=== PATIENT | male | born 1950 | race Two or more races ===

== ENCOUNTER 2017-03-16 00:10 | Inpatient (IN) | payer BC ==
[~2017-03-16] VITALS: Ht 167.6 cm; Wt 75.2 kg
[2017-03-16 01:59] LABS: Basophils # (auto) 0 uL; Basophils % (auto) 0.3 % (0.0-2.0); Eosinophils # (auto) 0 uL; Eosinophils % (auto) 0.1 % (0.0-7.0); Hematocrit 47.8 % (41.0-53.0); Hemoglobin 15.8 g/dL (13.5-17.5); Lymphocytes # (auto) 1.4 uL; Lymphocytes % (auto) 9.5 % (10.0-50.0); Mean Corpuscular Hemoglobin 28.7 pg (28.0-32.0); Mean Corpuscular Volume 86.9 fL (80.0-100.0); Monocytes # (auto) 1.5 uL; Monocytes % (auto) 10.1 % (0.0-12.0); Neutrophils # (auto) 11.6 uL; Platelet Count (auto) 264 10^3/uL (140-450); Red Cell Distribution Width 12.3 % (11.8-14.3); White Blood Cell 14.5 10^3/uL (4.4-10.8)
[2017-03-16 02:05] LABS: Alanine Aminotransferase 126 U/L (16-61); Albumin 3.9 g/dL (3.4-5.0); Amylase 59 U/L (25-115); Anion Gap 5 (5-15); Aspartate Aminotransferase 196 U/L (15-37); BUN/Creatinine Ratio 15.4; Blood Urea Nitrogen 14 mg/dL (7-18); Calcium 8.7 mg/dL (8.5-10.1); Carbon Dioxide 29 mmol/L (21-32); Chloride 101 mmol/L (98-107); GFR African American 108 mL/min; GFR Non-African American 89 mL/min; Glucose 115 mg/dL (74-106); Lipase 201 U/L (73-393); Magnesium 2.2 mg/dL (1.6-2.6); Potassium 4.9 mmol/L (3.5-5.1); Sodium 135 mmol/L (136-145)
[2017-03-16 02:10] LABS: Alkaline Phosphatase 94 U/L (45-117); Bilirubin, Total 1.4 mg/dL (0.2-1.0); Total Protein 7.7 g/dL (6.4-8.2)
[2017-03-16] MEDS ORDERED: SODIUM CHLORIDE 0.9% 1,000 ML IVB ONE (06:33)
[2017-03-16] MEDS ORDERED: ONDANSETRON HCL 4 MG/2 ML VIAL IV ONE (06:45)
[2017-03-16] MEDS ORDERED: HYDROmorphone HCL 2 MG/ML VL IV ONE (06:45)
[2017-03-16] MEDS ORDERED: metroNIDAZOLE 500MG/100ML 100 ML IV ONE (06:45)
[2017-03-16] MEDS ORDERED: SODIUM CHLORIDE 0.9% 1,000 ML IV SCH (08:00)
[2017-03-16 09:14] VITALS: BP 132/78
[2017-03-16] MEDS ORDERED: LEVOFLOXACIN 500MG 100 ML IV SCH (11:00)
[2017-03-16] MEDS: HYDROmorphone HCL 2 MG/ML VL IV PRN ×2 (13:06→18:02)
[2017-03-16] MEDS: ONDANSETRON HCL 4 MG/2 ML VIAL IV PRN ×2 (13:06→18:02)
[2017-03-16] MEDS ORDERED: metroNIDAZOLE 500MG/100ML 100 ML IV SCH (14:00)
[2017-03-16] MEDS ORDERED: ACETAMINOPHEN 325 MG TAB PO ONE ×2 (17:32→17:45)
[2017-03-16 17:58] VITALS: BP 121/70
== END 2017-03-16 18:03 | disposition short-term general hospital (02) | DRG 446 ==
LOC: ER 00:13 → OVERFLOW 00:14
PROVIDERS: ADMIT Nurse Practitioner Family; ATTEND Family Medicine
DX: K81.0 Acute cholecystitis (principal); K76.0 Fatty (change of) liver, not elsewhere classified; Z88.0 Allergy status to penicillin; Z98.890 Other specified postprocedural states
CPT/HCPCS: 36415; 74176; 76705; 80053; 82150; 83690; 83735; 84484; 85025; 87040; 87077; 87186; 93005; 94761; 96365; 96366; 96367; 96375; J1956; J2405; J3490

== ENCOUNTER 2018-05-09 12:51 | Inpatient (IN) | payer BC ==
[~2018-05-09] VITALS: Ht 167.6 cm; Wt 76.3 kg
[2018-05-09] MEDS ORDERED: ASPirin 81 mg TAB PO ONE (13:30)
[2018-05-09] MEDS ORDERED: ONDANSETRON HCL 4 MG/2 ML VIAL IV ONE ×3 (13:45→20:00)
[2018-05-09 14:13] LABS: Basophils # (auto) 0.4 uL; Basophils % (auto) 4.2 % (0.0-2.0); Eosinophils # (auto) 0.2 uL; Eosinophils % (auto) 1.9 % (0.0-7.0); Hematocrit 50.4 % (41.0-53.0); Hemoglobin 16.8 g/dL (13.5-17.5); Lymphocytes # (auto) 1.4 uL; Lymphocytes % (auto) 16.7 % (10.0-50.0); Mean Corpuscular Hemoglobin 29.4 pg (28.0-32.0); Mean Corpuscular Hgb Conc. 33.3 g/dL (32.0-36.0); Mean Corpuscular Volume 88.2 fL (80.0-100.0); Monocytes # (auto) 0.4 uL; Monocytes % (auto) 4.8 % (0.0-12.0); Neutrophils # (auto) 6.3 uL; Neutrophils % (auto) 72.4 % (37.0-80.0); Platelet Count (auto) 252 10^3/uL (140-450); Red Blood Cells 5.72 10^6/uL (4.5-5.90); Red Cell Distribution Width 12.5 % (11.8-14.3); White Blood Cell 8.7 10^3/uL (4.4-10.8)
[2018-05-09] MEDS ORDERED: MORPHINE SULFATE 4 MG/ML SYR/VIAL IV ONE (14:15)
[2018-05-09 14:27] LABS: INR 0.95 (0.9-1.15); Partial Thromboplastin Time 28.2 sec (23.78-33.04); Prothrombin Time 10.2 sec (9.27-12.13)
[2018-05-09 14:56] LABS: Alanine Aminotransferase 25 U/L (16-61); Albumin 3.7 g/dL (3.4-5.0); Anion Gap 8 (5-15); Aspartate Aminotransferase 21 U/L (15-37); BUN/Creatinine Ratio 10.9; Blood Urea Nitrogen 12 mg/dL (7-18); Calcium 8.5 mg/dL (8.5-10.1); Carbon Dioxide 26 mmol/L (21-32); Chloride 107 mmol/L (98-107); GFR African American 86 mL/min; GFR Non-African American 71 mL/min; Glucose 135 mg/dL (74-106); Magnesium 2.4 mg/dL (1.6-2.6); Potassium 3.9 mmol/L (3.5-5.1); Sodium 141 mmol/L (136-145)
[2018-05-09 15:01] LABS: Alkaline Phosphatase 63 U/L (45-117); Bilirubin, Total 0.3 mg/dL (0.2-1.0); Total Protein 7.4 g/dL (6.4-8.2)
[2018-05-09] MEDS ORDERED: ATORVASTATIN 20 MG TAB PO ONE (18:45)
[2018-05-09] MEDS ORDERED: LORazepam 0.5 MG TAB PO PRN (18:45)
[2018-05-09] MEDS ORDERED: MORPHINE SULFATE 4 MG/ML SYR/VIAL IV PRN ×3 (18:45→21:45)
[2018-05-09] MEDS ORDERED: ACETAMINOPHEN 500 MG TAB PO PRN (18:45)
[2018-05-09] MEDS ORDERED: TEMAZEPAM 15 MG CAP PO PRN (18:45)
[2018-05-09] MEDS ORDERED: PROMETHAZINE HCL 25 MG/ML 1ML IV PRN (18:45)
[2018-05-09] MEDS ORDERED: ATORVASTATIN 20 MG TAB PO SCH ×2 (18:45→22:00)
[2018-05-09] MEDS ORDERED: ENOXAPARIN SOD 80 MG/0.8ML SYRINGE SC ONE (18:45)
[2018-05-09] MEDS ORDERED: HYDROcodone-ACET 5/325MG TAB PO PRN (18:45)
[2018-05-09] MEDS ORDERED: NITROGLYCERIN 0.4 MG SL TAB SL PRN ×4 (18:45→21:45)
[2018-05-09] MEDS ORDERED: NITROGLYCERIN 50MG/250ML 250 ML IV SCH (19:08)
[2018-05-09] MEDS ORDERED: NITROGLYCERIN 50MG/250ML 250 ML IV ONE (19:28)
[2018-05-09] MEDS ORDERED: ONDANSETRON HCL 4 MG/2 ML VIAL ONE (19:55)
[2018-05-09] MEDS ORDERED: SODIUM CHLORIDE 0.9% 500 ML IV ONE (20:15)
[2018-05-09] MEDS ORDERED: LIDOCAINE 2%HCL (LOCAL ANESTH.) INJ 20ML MDV ONE (20:25)
[2018-05-09] MEDS ORDERED: IOHEXOL 350 MG/ML 100ML IJ ONE ×2 (20:25→20:55)
[2018-05-09] MEDS ORDERED: ANGIOMAX 250 MG VIAL IV ONE (20:26)
[2018-05-09] MEDS ORDERED: ATROPINE SULFATE 1 MG/1 ML VIAL ONE (20:26)
[2018-05-09] MEDS ORDERED: DOPamine 1600MCG/ML D5W 0 ML IV ONE (20:27)
[2018-05-09] MEDS ORDERED: fentaNYL CITRATE 100 MCG/2 ML VL ONE (20:27)
[2018-05-09] MEDS ORDERED: MIDAZOLAM HCL 1MG/1ML-2 ML VIAL ONE (20:27)
[2018-05-09] MEDS ORDERED: EPINEPHrine HCL 1 MG/10 ML SYRG ONE (20:27)
[2018-05-09] MEDS ORDERED: SODIUM CHL 0.9% 50 ML ONE (20:27)
[2018-05-09] MEDS ORDERED: PRASUGREL HCL 10 MG TAB ONE ×3 (21:28→21:32)
--- NOTE | 2018-05-09 22:41 | NUR ---
Report received from cath lab tech RN. JULES DUKE brought to room 214A following Cardiac catheterization. Patient transferred to unit bed, connected to traffic monitor specialist # [id number]. air sampling and monitoring shows sinus rhythm with 64 bpm. Patient has no s/s of distress or sob. Patient is awake, alert and oriented x 4. Patient has even unlabored respiration with 20 breaths per min. Bilateral IVs 20g to hands patent,clean and dry. Catheterization site assessed for any bleeding, redness or swelling soft to palpation. 4x4 gauze and Tegaderm in place. Pedal pulses on right leg assessed for positive tissue perfusion. Patient skin is intact. Patient instructed on need to notify staff immediately if any pain, burning or wetness to site, and any lower back pain. Patient educated on new cardiac medications and poc. All questions and concerns addressed, patient verbalized understanding of all education and instruction. Bed in lowest position with call light and urinal in reach.
[2018-05-09 22:50] VITALS: BP 125/72
[2018-05-09] MEDS: SODIUM CHLORIDE 0.9% 1,000 ML IV SCH (23:00)
[2018-05-10] MEDS: METOPROLOL TARTRATE 25 MG TAB PO SCH ×2 (00:18→11:42)
[2018-05-10] MEDS: LISINOPRIL 5 MG TAB PO SCH ×2 (00:20→11:43)
--- NOTE | 2018-05-10 00:37 | NUR ---
ALLERGIC REACTION: Nurse aide came to nursing station to inform nurse that patient was having reaction. Assessed patient. Patient states itching to upper and lower extremities. Patient stated he felt itchy when he came to floor. Patient was not itching at time of arrival. No bumps noted. After schedule medication given at 0015 patient became increasing itchy. Noted patient has welts on bilateral forearms and biceps. Patient denies sob and itching of the throat. Vital signs Temp 96.6, B/p 127/76, O2 is 96%, respiration 18. Oxygen saturation up to 98% on 2L via nasal cannula. Unknown cause will page hospitalist.
--- NOTE | 2018-05-10 00:41 | NUR ---
Hospitalist paged Awaiting call back.
[2018-05-10 01:07] LABS: Urine WBC None Seen /hpf (0 - 3)
--- NOTE | 2018-05-10 01:15 | NUR ---
Hospitalist called back New orders received, read back and verified. See eMAR for details.
[2018-05-10] MEDS ORDERED: diphenhdrAMINE HCL 50 MG/1 ML VL IV ONE (01:30)
[2018-05-10 01:47] LABS: Alcohol, Urine < 3.0 mg/dL (0-5); Amphetamine Screen, Urine NEGATIVE (NEGATIVE); Barbiturate Scree,Urine NEGATIVE (NEGATIVE); Benzodiazephine Screen, Urine POSITIVE (NEGATIVE); Cannabinoid Screen, Urine NEGATIVE (NEGATIVE); Cocaine Screen, Urine NEGATIVE (NEGATIVE); Opiate Scree,Urine NEGATIVE (NEGATIVE); Phencyclidine Screen, Urine NEGATIVE (NEGATIVE)
--- NOTE | 2018-05-10 02:12 | NUR ---
CRITICAL Trop of 194 will page hospitalist
[2018-05-10 02:14] LABS: Urine Bacteria NONE SEEN /hpf (None Seen); Urine Blood Negative /uL (Negative)
--- NOTE | 2018-05-10 03:48 | NUR ---
Post reaction assessment: Patient was given Benadryl. Reassessed patient and denies sob and throat itching. Only noted reaction on left arm other skin area have cleared. Will continue to assess for changes. Patient told to call if he experiences any changes. Patient verbalizes understanding.
--- NOTE | 2018-05-10 06:24 | NUR ---
Spoke with HospitalistKirk Regarding Critical trop of 194 at 0212 patient is S/P [facility] x1 stent to LAD Per Kirk this is okay continue to monitor no new orders at this time.
[2018-05-10 06:34] VITALS: BP 105/64
--- NOTE | 2018-05-10 07:00 | NUR ---
Opening Shift Note Assumed care of patient, awake and alert. No S/S of distress/SOB or pain. Instructed on POC and to call for assist PRN, will continue to monitor for changes Q1hr and PRN.
--- NOTE | 2018-05-10 07:00 | NUR ---
Closing shift note Patient is awake, alert and oriented x 4. Patient denies pain or itchiness. Breathing is even and unlabored. Patient has no welts or redness to skin. call light is within reach and bed is in lowest position. Endorsed care to morning nurseDago.
[2018-05-10] MEDS: SODIUM CHLORIDE 0.9% 1,000 ML IV SCH (07:56)
[2018-05-10 08:00] VITALS: BP 104/58
[2018-05-10] MEDS ORDERED: ENOXAPARIN SOD 80 MG/0.8ML SYRINGE SC SCH (08:00)
[2018-05-10 09:00] VITALS: BP 104/58
[2018-05-10] MEDS ORDERED: ENOXAPARIN SOD 40 MG/0.4 ML SYRINGE SC SCH (10:00)
[2018-05-10] MEDS ORDERED: ASPirin 81 mg TAB PO SCH (10:00)
[2018-05-10] MEDS ORDERED: PANTOPRAZOLE 40 MG TAB PO SCH (10:00)
[2018-05-10] MEDS ORDERED: PRASUGREL HCL 10 MG TAB PO SCH (10:00)
[2018-05-10] MEDS ORDERED: NITROGLYCERIN 0.2MG/HR TOPICAL PATCH TD SCH (10:00)
[2018-05-10 13:00] VITALS: BP 99/61
[2018-05-10 15:52] VITALS: BP 99/61
--- NOTE | 2018-05-10 16:50 | NUR ---
Discharge instructions given as ordered. Encourage to follow up with PMD as instructed. All questions and concerns addressed. Patient verbalized understanding. IV removed with catheter intact, pressure dressing applied. Telemetry unit returned to [facility]. Patient ambulated to vehicle with all personal belongings, accompanied by staff and family member. No distress noted at time of departure.
== END 2018-05-10 16:49 | disposition home or self-care (01) | DRG 246 ==
LOC: ER 12:53 → TELE 18:39 → TELE-CENTR 22:41
PROVIDERS: ADMIT Internal Medicine; ATTEND Family Medicine
PROC: 027034Z Dilation of Coronary Artery, One Artery with Drug-eluting Intraluminal Device, Percutaneous Approach (ICD-10-PCS; principal; 2018-05-09)
PROC: 4A023N7 Measurement of Cardiac Sampling and Pressure, Left Heart, Percutaneous Approach (ICD-10-PCS; 2018-05-09)
PROC: B2111ZZ Fluoroscopy of Multiple Coronary Arteries using Low Osmolar Contrast (ICD-10-PCS; 2018-05-09)
PROC: B2151ZZ Fluoroscopy of Left Heart using Low Osmolar Contrast (ICD-10-PCS; 2018-05-09)
DX: I21.4 Non-ST elevation (NSTEMI) myocardial infarction (principal); I50.43 Acute on chronic combined systolic (congestive) and diastolic (congestive) heart failure; I10 Essential (primary) hypertension; R73.9 Hyperglycemia, unspecified; I25.82 Chronic total occlusion of coronary artery; I25.10 Atherosclerotic heart disease of native coronary artery without angina pectoris; I08.0 Rheumatic disorders of both mitral and aortic valves; Z82.49 Family history of ischemic heart disease and other diseases of the circulatory system; Z88.0 Allergy status to penicillin; Z90.49 Acquired absence of other specified parts of digestive tract; Z90.89 Acquired absence of other organs
CPT/HCPCS: 36415; 71045; 80053; 80061; 80307; 81001; 82550; 83735; 83880; 84443; 84484; 85025; 85379; 85610; 85652; 85730; 86141; 86850; 86900; 86901; 93005; 93306; 96372; 96374; 96375; A6257; G0378; J0461; J2250; J2405